=== PATIENT | male | born 1955 | race Caucasian/White ===

== ENCOUNTER 2023-04-21 13:40 | Outpatient (CLI) | payer BC ==
--- NOTE | 2023-04-21 19:34 | CT Report ---
PROCEDURE: IAC'S WO INDICATIONS: HEARING LOSS COMPARISON: None. TECHNIQUE: Noncontrast 0.6 mm thick direct axial and coronal sections acquired through each temporal bone separa tely. For radiation dose reduction, the following was used: automated exposure control, adjustment of mA and/or kV according to patient size. FINDINGS: Image quality: Excellent. RIGHT: External auditory canal: Canal has a normal appearance. Middle ear: The middle ear structures, including the ossicles and tympanic membrane, appear normal. No abnormal fluid or soft tissue density. Inner ear: Inner ear is normally formed and appears unremarkable. Facial nerve appears normal throu ghout is course. Mastoids: Mastoid air cells are clear. LEFT: External auditory canal: There is expansion of the left external auditory canal. Middle ear: The left middle ear ossicles are largely absent. The tympanic membrane is irregular. Inner ear: Inner ear is normally formed and appears unremarkable. No significant cochlear abnormalit y is seen. Facial nerve appears normal throughout its course. Mastoids: There has been prior resection of the mastoid air cells. At least moderate mucosal thicken ing can be seen within the right mastoid air cells. MISCELLANEOUS: Visualized surrounding bones appear unremarkable. Visualized intracranial structures , including the cerebellopontine angle cisterns, appear normal. IMPRESSION: Prior postoperative and inflammatory change seen of the left ear, with expansion of the left external auditory canal and removal of mastoid air cell septations. There is moderate mucosal thickening seen within the left mastoid air cells. The left middle ear ossicles are largely absent. The left tympanic membrane is irregular. Reviewed by: Gene Leslie MD on 04/21/2023 6:32 PM [facility] Approved by: Gene Leslie MD on 04/21/2023 6:32 PM [facility] Station ID: [id number]
== END 2023-04-21 13:41 | disposition home or self-care (01) ==
LOC: DI 13:40
PROVIDERS: ATTEND Otolaryngology
DX: H90.3 Sensorineural hearing loss, bilateral (principal)